=== PATIENT | female | born 1990 | race Hispanic/Latino ===

== ENCOUNTER 2020-09-20 23:54 | Emergency (ER) | payer SELFPAY ==
[~2020-09-20] VITALS: Ht 167.6 cm; Wt 53.5 kg
[2020-09-21] MEDS ORDERED: TEMAZEPAM15 MG PO (00:25)
== END 2020-09-21 01:00 | disposition home or self-care (01) ==
LOC: FSED 09-21 00:15
DX: F41.9 Anxiety disorder, unspecified (principal); F32.9 Major depressive disorder, single episode, unspecified
CPT/HCPCS: 99283